=== PATIENT | male | born 1980 ===

== ENCOUNTER → 2018-09-24 21:09 | Outpatient (REF) | payer BC, SELFPAY ==
[2018-09-24 21:52] LABS: Add Manual Diff / Slide Review NO; Basophils Absolute Auto 0 /uL (0-100); Basophils Percent Auto 0.4 % (0-2); Eosinophils Absolute Auto 0 /uL (0-450); Eosinophils Percent Auto 0.7 % (2-4); Hematocrit 46.4 % (41-53); Hemoglobin 15.6 g/dL (13.5-17.5); Lymphocytes Absolute Auto 2300 /uL (1100-4500); Lymphocytes Percent Auto 39.3 % (25-40); Mean Corpuscular HGB Conc 33.6 % (30-36); Mean Corpuscular Hemoglobin 31.6 PG (26-34); Mean Corpuscular Volume 94.3 fL (80-100); Monocytes Absolute Auto 400 /uL (0-900); Neutrophils Absolute Auto 3100 /uL (1500-7000); Neutrophils Percent Auto 52.6 % (50-75); Platelet Count 201 X10^3/uL (150-400); Red Blood Cell Count 4.92 X10^6/uL (4.5-5.9); Red Cell Distribution Width 13.5 % (11.6-14.8)
[2018-09-24 22:13] LABS: Alanine Aminotransferase 48 IU/L (21-72); Albumin 4.7 g/dL (3.5-5.0); Albumin Globulin Ratio 1.7 (1.0-2.8); Alkaline Phosphatase 77 U/L (38-126); Aspartate Aminotransferase 39 IU/L (17-59); BUN Creatinine Ratio 11.7 (6-22); Bilirubin Total 0.7 mg/dL (0.2-1.3); Blood Urea Nitrogen 14 mg/dL (9-20); Calcium 9.6 mg/dL (8.4-10.2); Carbon Dioxide 26 mmol/L (22-32); Chloride 103 mmol/L (98-107); Estimated Glomerular Filt Rate > 60.0 mL/min (>60); Globulin 2.8 g/dL (1.7-4.1); Glucose 92 mg/dL (70-100); HEMOLYSIS < 15 (0-50); Potassium 4.1 mmol/L (3.4-5.1); Sodium 140 mmol/L (137-145); Total Protein 7.5 g/dL (6.3-8.2)
[2018-09-29 15:50] LABS: PSA Total 0.85 ng/mL (< 4.01)
[2018-09-29 16:48] LABS: Estradiol 21 pg/mL (< 40)
== END ==
LOC: LAB 21:09
PROVIDERS: Visit Provider Naturopath
DX: R53.83 Other fatigue (principal); E83.119 Hemochromatosis, unspecified; R68.82 Decreased libido; R06.83 Snoring; Z13.89 Encounter for screening for other disorder
CPT/HCPCS: 36415; 80053; 82670; 82728; 84153; 84154; 84270; 84402; 84403; 85025